=== PATIENT | male | born 1980 | race Caucasian/White ===

== ENCOUNTER 2024-01-17 06:11 | Day surgery (SDC) | payer BC ==
[2024-01-17] MEDS: Lactated Ringers 1,000 ML IV SCH (06:27)
[2024-01-17 06:46] VITALS: RESP 18
[2024-01-17] MEDS ORDERED: DIPRIVAN 200 MG/20 ML IV ONE (08:03)
[2024-01-17 08:49] VITALS: TEMP 97.1
[2024-01-17 09:02] VITALS: O2SAT 98
[2024-01-17 09:05] VITALS: BP 128/74; PULSE 72
--- NOTE | 2024-01-18 09:07 | OP ---
SURGERY DATE/TIME: 01/17/2024 [id number] PREOPERATIVE DIAGNOSIS: Gastroesophageal reflux disease. POSTOPERATIVE DIAGNOSIS: Gastritis. PROCEDURE: Esophagogastroduodenoscopy with cold forceps biopsy. SURGEON: Pedro Serrato MD ANESTHESIA: Medication given by the anesthesia department. HISTORY: The patient is a 43-year-old white male presenting now for endoscopic evaluation. He reports he has had a gastric band placed surgically and apparently desires to have it removed. He reports he has been having trouble with gastroesophageal reflux basically ever since he has had it placed. He takes Nexium for relief. The patient reports this is no longer giving him any relief. The patient has felt the need to have endoscopic evaluation. The patient was apprised of the risks of the procedure, including the risk of perforation, phlebitis, untoward reaction to medication, bleeding and missed lesions. The patient verbalized his understanding and desired to have the procedure performed. DESCRIPTION OF PROCEDURE AND FINDINGS: The patient was given medication by the anesthesia department. He had continuous pulse oximetry, ECG monitoring, intermittent blood pressure monitoring, and end-tidal CO2 monitoring during the examination. He was placed in the left lateral decubitus position. A bite block was placed. A flexible Olympus gastroscope was used to intubate the oropharynx. A view of the larynx was obtained and was normal. The scope was easily introduced in the esophagus, which appeared to be normal throughout its length. The stomach was entered where normal gastric rugal folds were seen. These distended nicely with the insufflation of air. The scope was passed along the greater curvature of the stomach to the pylorus which appeared to be essentially normal. The scope was passed through the pylorus and the duodenum was inspected and found to be normal. The scope was withdrawn towards the stomach. Again, a retroflex view was obtained of the lesser curvature, fundus, and cardia regions of the stomach; and these appeared to be essentially normal. The scope was then redirected towards the gastric antrum where biopsies were obtained to rule out the presence of Helicobacter pylori-type organisms. The scope was then removed from the patient who tolerated the procedure well and was sent back to outpatient recovery in good condition.
== END 2024-01-17 09:11 | disposition home or self-care (01) ==
LOC: SDC 06:11
PROVIDERS: ATTEND Family Medicine
DX: K29.70 Gastritis, unspecified, without bleeding (principal); K21.9 Gastro-esophageal reflux disease without esophagitis
CPT/HCPCS: J2704